=== PATIENT | female | born 1960 | race Caucasian/White ===

== ENCOUNTER → 2017-07-21 | Outpatient (CLI) | payer OTHER ==
--- NOTE | 2017-07-24 11:51 | MM ---
Reason for exam: screening (asymptomatic). History: Patient is postmenopausal. Taking progesterone for 2 years. Taking other hormone for 1 year. Physical Findings: A clinical breast exam by your physician is recommended on an annual basis and results should be correlated with mammographic findings. MG 3D Screening Mammo W/Cad Bilateral CC and MLO view(s) were taken. The breast tissue is heterogeneously dense. This may lower the sensitivity of mammography. Nodular density upper outer right breast 4.4cm from nipple. ASSESSMENT: Incomplete: need additional imaging evaluation, BI-RAD 0 RECOMMENDATION: Special view mammogram and ultrasound of the right breast. [facility] will attempt to contact patient to return for supplemental views and ultrasound.
== END | disposition home or self-care (01) ==
LOC: RADMAMWWP 14:48
PROVIDERS: ATTEND Family Medicine
DX: Z12.31 Encounter for screening mammogram for malignant neoplasm of breast (principal)
CPT/HCPCS: 77063; 77067

== ENCOUNTER → 2017-07-28 | Outpatient (CLI) | payer OTHER ==
--- NOTE | 2017-07-28 15:01 | MM ---
Reason for exam: additional evaluation requested from abnormal screening. Last mammogram was performed less than 1 month ago. History: Patient is postmenopausal. Taking progesterone for 2 years. Taking other hormone for 1 year. Physical Findings: Nurse did not find any significant physical abnormalities on exam. MG 3D Work Up W/Cad RT Spot compression CC, spot compression MLO, and ML view(s) were taken of the right breast. Prior study comparison: July 21, 2017, bilateral MG 3d screening mammo w/cad. There are scattered fibroglandular densities. Finding: There is a 9 mm circumscribed oval mass in the upper outer quadrant, anterior position of the right breast. These results were verbally communicated with the patient and result sheet given to the patient on 07/28/17. ASSESSMENT: Incomplete: need additional imaging evaluation, BI-RAD 0 RECOMMENDATION: Ultrasound of the right breast.
--- NOTE | 2017-07-28 15:02 | USB ---
Reason for exam: additional evaluation requested from abnormal screening. History: Patient is postmenopausal. Taking progesterone for 2 years. Taking other hormone for 1 year. US Breast Workup Limited RT Right breast ultrasound demonstrates a 0.7 x 0.3 x 0.6cm oval, cystic lesion at 11 o'clock favor cluster of tiny cysts. These results were verbally communicated with the patient and result sheet given to the patient on 07/28/17. ASSESSMENT: Probably benign, BI-RAD 3 RECOMMENDATION: Follow-up diagnostic mammogram and ultrasound of the right breast in 6 months.
== END | disposition home or self-care (01) ==
LOC: RADMAMWWP 12:58
PROVIDERS: ATTEND Family Medicine
DX: R92.8 Other abnormal and inconclusive findings on diagnostic imaging of breast (principal)
CPT/HCPCS: 77065; 76642; G0279

== ENCOUNTER → 2018-02-13 | Outpatient (CLI) | payer OTHER ==
--- NOTE | 2018-02-13 15:27 | MM ---
Reason for exam: follow-up at short interval from prior study. Last mammogram was performed 7 months ago. History: Patient is postmenopausal. Took progesterone for 2 years. Taking other hormone for 1 year. Physical Findings: Nurse did not find any significant physical abnormalities on exam. MG 3D Diag Mammo W/Cad RT CC and MLO view(s) were taken of the right breast. Prior study comparison: July 28, 2017, right breast MG 3d work up w/cad RT. July 21, 2017, bilateral MG 3d screening mammo w/cad. The breast tissue is heterogeneously dense. This may lower the sensitivity of mammography. Scattered nodular density upper right MLO. These results were verbally communicated with the patient and result sheet given to the patient on 02/13/18. ASSESSMENT: Incomplete: need additional imaging evaluation, BI-RAD 0 RECOMMENDATION: Ultrasound of the right breast.
--- NOTE | 2018-02-13 15:31 | USB ---
Reason for exam: additional evaluation requested from prior study. History: Patient is postmenopausal. Took progesterone for 2 years. Taking other hormone for 1 year. US Breast RT Right complete breast ultrasound includes all four quadrants, the retroareolar region and axilla. Finding demonstrates a 0.7 x 0.4 x 0.6 cystic lesion at 11 o'clock and an axillar node. These results were verbally communicated with the patient and result sheet given to the patient on 02/13/18. ASSESSMENT: Benign, BI-RAD 2 RECOMMENDATION: Return to routine screening mammogram schedule for both breasts.
== END | disposition home or self-care (01) ==
LOC: RADMAMWWP 13:39
PROVIDERS: ATTEND Family Medicine
DX: R92.8 Other abnormal and inconclusive findings on diagnostic imaging of breast (principal)
CPT/HCPCS: 77061; 77065

== ENCOUNTER 2018-02-16 09:06 | Day surgery (SDC) | payer OTHER ==
[2018-02-14 11:10] VITALS: BMI 24.3
[2018-02-16 09:29] VITALS: RESP 16; TEMP 98.5
[2018-02-16] MEDS ORDERED: LACTATED RINGERS 1,000 ML IV SCH (09:37)
[2018-02-16] MEDS ORDERED: LIDOCAINE 1% 20 ML VIAL (10MG/ML) FOR IV START INTRADERMA ONE (09:38)
[2018-02-16] MEDS ORDERED: LIDOCAINE 1% INJ 10MG/ML (20 ML MDV) ONE (09:51)
[2018-02-16] MEDS ORDERED: fentaNYL (PF) 50 MCG/ML 2 ML AMP ONE (09:51)
[2018-02-16] MEDS ORDERED: PROPOFOL 10 MG/ML 20 ML VIAL IV ONE (09:51)
[2018-02-16] MEDS ORDERED: MIDAZOLAM 2 MG/2 ML VIAL ONE (09:51)
--- NOTE | 2018-02-16 09:59 | P.GSHP ---
History of Present Illness H&P Date: 02/16/18 Chief Complaint: Colon cancer screening Patient or today for colonoscopy. She has not had one previously. No bowel complaints. No family history of colon cancer. Past Medical History Past Medical History: Thyroid Disorder History of Any Multi-Drug Resistant Organisms: None Reported Past Surgical History: Ear Surgery Additional Past Surgical History / Comment(s): "ears pinned back"; D&C; [place] teeth Past Anesthesia/Blood Transfusion Reactions: No Reported Reaction Smoking Status: Never smoker - Past Family History Mother Family Medical History: No Reported History Medications and Allergies Home Medications Medication Instructions Recorded Confirmed Type Ascorbic Acid [Vitamin C] 500 mg PO DAILY 02/14/18 02/14/18 History Biotin 10,000 mcg PO DAILY 02/14/18 02/16/18 History Calcium Carbonate [Calcium] 600 mg PO DAILY 02/14/18 02/16/18 History Cholecalciferol (Vitamin D3) 2,000 unit PO DAILY 02/14/18 02/16/18 History [Vitamin D3] Glucosamine Sulfate 500 mg PO DAILY 02/14/18 02/16/18 History Multivitamins, Thera [Multivitamin 1 tab PO DAILY 02/14/18 02/14/18 History (formulary)] Prasterone (Dhea) [Dhea] 25 mg PO DAILY 02/14/18 02/16/18 History Thyroid,Pork [Cutler Thyroid] 240 mg PO DAILY 02/14/18 02/16/18 History Ubidecarenone [Co Q-10] 300 mg PO DAILY 02/14/18 02/16/18 History Vitamin B Complex 1 each PO DAILY 02/14/18 02/16/18 History Allergies Allergy/AdvReac Type Severity Reaction Status Date / Time No Known Allergies Allergy Verified 02/16/18 09:25 Surgical - Exam Vital Signs Temp Pulse Resp BP Pulse Ox 98.5 F 77 16 114/77 99 02/16/18 09:22 02/16/18 09:22 02/16/18 09:22 02/16/18 09:22 02/16/18 09:22 Physical exam: General: Well-developed, well-nourished HEENT: Normocephalic, sclerae nonicteric Abdomen: Nontender, nondistended Extremities: No edema Neuro: Alert and oriented Assessment and Plan (1) Colon cancer screening Narrative/Plan: Will proceed with colonoscopy at this time. Current Visit: Yes Status: Acute Code(s): Z12.11 - ENCOUNTER FOR SCREENING FOR MALIGNANT NEOPLASM OF COLON SNOMED Code(s): 958177527
--- NOTE | 2018-02-16 10:15 | P.PCN ---
Date of Procedure: 02/16/18 Procedure(s) Performed: PREOPERATIVE DIAGNOSIS: Colon cancer screening POSTOPERATIVE DIAGNOSIS: Normal exam PROCEDURE: Colonoscopy ANESTHESIA: MAC SURGEON: Mckinley Kebede M.D. SPECIMENS: None ENDOSCOPIC PROCEDURE: The patient was placed on the endoscopy table in the left decubitus position. The Olympus colonoscope was inserted into the anus and passed under direct visualization to the base of the cecum. The appendiceal orifice was visualized. From that point the scope was slowly withdrawn inspecting all surfaces carefully. There were no neoplastic inflammatory or polypoid lesions throughout the cecum, ascending, transverse, descending, sigmoid and rectum. There was no diverticulosis noted. Digital rectal examination was normal. The patient was taken to the recovery room in stable condition per anesthesia guidelines. RECOMMENDATIONS: Increase fiber. Follow-up colonoscopy in 10 years.
[2018-02-16 10:47] VITALS: BP 119/76; PULSE 66
== END 2018-02-16 11:21 | disposition home or self-care (01) ==
LOC: ORWHC2ENDO 09:06
PROVIDERS: ATTEND Surgery
DX: Z12.11 Encounter for screening for malignant neoplasm of colon (principal); E07.9 Disorder of thyroid, unspecified; Z79.890 Hormone replacement therapy; Z79.1 Long term (current) use of non-steroidal anti-inflammatories (NSAID)
CPT/HCPCS: J2250; J2001; J3010; J2704; G0121; 45378

== ENCOUNTER → 2019-01-10 | Outpatient (CLI) | payer OTHER ==
--- NOTE | 2019-01-14 08:41 | MM ---
Reason for exam: screening (asymptomatic). Last mammogram was performed 11 months ago. History: Patient is postmenopausal. Took progesterone for 2 years. Taking other hormone for 1 year. Physical Findings: A clinical breast exam by your physician is recommended on an annual basis and results should be correlated with mammographic findings. MG 3D Screening Mammo W/Cad Bilateral CC and MLO view(s) were taken. Prior study comparison: February 13, 2018, right breast MG 3d diag mammo w/cad RT. July 28, 2017, right breast MG 3d work up w/cad RT. The breast tissue is extremely dense which could obscure a lesion on mammography. Finding: There is an equal density (isodense), lobulated mass located 3 cm from the nipple in the upper quadrant, anterior position of the right breaston MLO view. New finding since February 13, 2018 and July 28, 2017. ASSESSMENT: Incomplete: need additional imaging evaluation, BI-RAD 0 RECOMMENDATION: Special view mammogram and ultrasound of the right breast. [facility] will attempt to contact patient to return for supplemental views and ultrasound.
== END | disposition home or self-care (01) ==
LOC: RADMAMWWP 10:52
PROVIDERS: ATTEND Obstetrics & Gynecology
DX: Z12.31 Encounter for screening mammogram for malignant neoplasm of breast (principal)
CPT/HCPCS: 77063; 77067

== ENCOUNTER → 2019-01-22 | Outpatient (CLI) | payer OTHER ==
--- NOTE | 2019-01-22 11:33 | MM ---
Reason for exam: additional evaluation requested from abnormal screening. Last mammogram was performed less than 1 month ago. History: Patient is postmenopausal. Took hormonal contraceptives for 1 year 6 months beginning at age 23. Taking progesterone for 2 years. Taking other hormone for 1 year. Physical Findings: Nurse did not find any significant physical abnormalities on exam. MG 3D Work Up W/Cad RT Spot compression CC, spot compression MLO, and ML view(s) were taken of the right breast. Prior study comparison: January 10, 2019, bilateral MG 3d screening mammo w/cad. February 13, 2018, right breast MG 3d diag mammo w/cad RT. The breast tissue is heterogeneously dense. This may lower the sensitivity of mammography. Lobulated mass superior anterior right breast persists. These results were verbally communicated with the patient and result sheet given to the patient on 01/22/19. ASSESSMENT: Incomplete: need additional imaging evaluation, BI-RAD 0 RECOMMENDATION: Ultrasound of the right breast. (10-2 o'clock)
--- NOTE | 2019-01-22 11:37 | USB ---
Reason for exam: additional evaluation requested from abnormal screening. History: Patient is postmenopausal. Took hormonal contraceptives for 1 year 6 months beginning at age 23. Taking progesterone for 2 years. Taking other hormone for 1 year. US Breast Workup Limited RT Right limited breast ultrasound including focal area of concern, retroareolar and axilla demonstrates a 0.4 x 0.5 x 0.3cm oval, cystic, benign lesion at 11 o'clock, a 0.8 x 0.8 x 0.5cm oval, cystic cluster at 11 o'clock versus 8mm on 07/28/17, benign, may correspond to the mammographic finding, a 0.9 x 1.0 x 0.3cm oval possibly new cyst cluster at 1 o'clock, 6 month follow up recommended, a 0.5 x 0.4 x 0.2cm oval, new lesion at 1 o'clock, 6 month follow up recommended and a 0.9 x 0.6 x 0.3cm oval, cystic cluster, new at 2 o'clock, 6 month follow up recommended. These results were verbally communicated with the patient and result sheet given to the patient on 01/22/19. ASSESSMENT: Probably benign, BI-RAD 3 RECOMMENDATION: Ultrasound of the right breast in 6 months.
== END | disposition home or self-care (01) ==
LOC: RADMAMWWP 09:16
PROVIDERS: ATTEND Obstetrics & Gynecology
DX: R92.8 Other abnormal and inconclusive findings on diagnostic imaging of breast (principal)
CPT/HCPCS: 77061; 77065

== ENCOUNTER → 2019-04-17 | Outpatient (CLI) | payer OTHER ==
[2019-04-17 18:43] LABS: Follicle Stimulating Hormone 76.1 mIU/mL
[2019-04-17 18:53] LABS: Progesterone 0.9 ng/mL
== END | disposition home or self-care (01) ==
LOC: LABWHC1 13:44
PROVIDERS: ATTEND Obstetrics & Gynecology
DX: N95.1 Menopausal and female climacteric states (principal); R53.83 Other fatigue
CPT/HCPCS: 36415; 82670; 83001; 84144; 84403

== ENCOUNTER → 2019-07-19 | Outpatient (CLI) | payer OTHER ==
--- NOTE | 2019-07-19 12:01 | USB ---
Reason for exam: follow-up at short interval from prior study. History: Patient is postmenopausal. Took hormonal contraceptives for 1 year 6 months beginning at age 23. Taking progesterone for 2 years. Taking other hormone for 1 year. Physical Findings: Nurse did not find any significant physical abnormalities on exam. US Breast Limited RT Right limited breast ultrasound including focal area of concern, retroareolar and axilla demonstrates a 7 x 3 x 7mm oval, mixed lesion at 1 o'clock prior 0.9 x 0.3 x 1.0cm, a 4 x 1 x 4mm oval, mixed lesion at 1 o'clock prior 0.5 x 0.2 x 0.4cm and a 6 x 2 x 4mm lobular, cystic lesion at 2 o'clock prior 0.9 x 0.3 x 0.6cm. All smaller cystic clusters. These results were verbally communicated with the patient and result sheet given to the patient on 07/19/19. ASSESSMENT: Benign, BI-RAD 2 RECOMMENDATION: Return to routine screening mammogram schedule for both breasts. Back on schedule.
== END | disposition home or self-care (01) ==
LOC: RADMAMWWP 09:58
PROVIDERS: ATTEND Obstetrics & Gynecology
DX: R92.8 Other abnormal and inconclusive findings on diagnostic imaging of breast (principal)